=== PATIENT | male | born 1965 | race Caucasian/White ===

== ENCOUNTER 2016-11-26 15:54 | Emergency (ER) | payer SELFPAY ==
[~2016-11-26] VITALS: Ht 198.1 cm; Wt 140.0 kg
[~2016-11-26 15:54] MED LIST: CALCIUM CHLORIDE 10% SOLN 1 GRAM/10 ML SYR IV ONE; EPINEPHrine HCL (1:10,000) 1 MG/10 ML SYRINGE IV ONE; NALOXONE HCL 4 MG/10 ML MDV IV ONE; SODIUM BICARBONATE 8.4% INJ 50 MEQ/50 ML SYR IV ONE
[2016-11-26] MEDS ORDERED: EPINEPHrine HCL (1:10,000) 1 MG/10 ML SYRINGE ONE (16:14)
--- NOTE | 2016-11-26 16:42 | PD ---
HPI Chief Complaint: Cardiopulmonary Arrest Time Seen by Provider: 16:27 Travel History International Travel<30 days: No Contact w/Intl Traveler<30days: No History of Present Illness HPI The patient is 51 years old and arrives in cardiopulmonary arrest. He was found seizing by the side of the road by police. EMS was activated. On scene they observed agonal respirations with a pulse of 40. Reportedly within seconds of their arrival the patient became asystolic and cardiopulmonary resuscitation was initiated. The patient was intubated with a Combitube. Prior to ER arrival the patient underwent about 10 minutes of CPR. He received epinephrine and bicarbonate. Upon arrival here the endotracheal tube placement was confirmed and chest compressions were continued. He underwent 25 minutes of ACLS resuscitation before transthoracic ultrasound revealed cardiac akinesis and the patient was pronounced at 20:19. He received 2 A of sodium bicarbonate and 7 doses of epinephrine. The patient also received calcium and Narcan. A repeat blood glucose was 270; on scene blood glucose was about 130. Pupils remained fixed and dilated throughout the resuscitative course. [facility] Past Medical History Medical History: Unable to Obtain Social History Tobacco Use: No (unable to assess) Review of Systems ROS Limitations: Clinical Condition, Intubated, Unresponsive Physical Exam Narrative GENERAL: 60 yo M, GCS3T SKIN: Warm and dry. HEAD: Atraumatic. Normocephalic. EYES: Pupils fixed and dilated. ENT: No nasal bleeding or discharge. Mucous membranes pink and moist. NECK: Trachea midline. No JVD. CARDIOVASCULAR: Asystole/pulseless. RESPIRATORY: Intubated. Breath sounds bilaterally. GASTROINTESTINAL: Abdomen soft, non-tender, nondistended. Hepatic and splenic margins not palpable. MUSCULOSKELETAL: Extremities without clubbing, cyanosis, or edema. No obvious deformities. LLE IO in place. NEUROLOGICAL: GCS3T. PSYCHIATRIC: Unable to assess,. Data Data Last Documented VS Vital Signs Date Time Temp Pulse Resp B/P Pulse Ox O2 Delivery O2 Flow Rate FiO2 11/26/16 16:00 15.00 100 Orders Epinephrine (1:10,000) Inj (Epinephrine (11/26/16 16:14) MDM Medical Decision Making Medical Screen Exam Complete: Yes Emergency Medical Condition: Yes Differential Diagnosis cardiopulmonary arrest, respiratory arrest, hypoxia, anoxia, stroke, seizure Narrative Course Please refer to HPI. Pt pronounced at 2019pm. PMD notified by broker in charge. PMD will sign certificate. Procedures Procedure Narrative After the risks and benefits were discussed the following procedure was performed: CENTRAL VENOUS LINE: The site was prepped with Betadine and sterilely draped. It was infiltrated with 1% lidocaine plain. The deep vein was cannulated using normal Seldinger technique. A central line was placed in the R femoral vein site and secured with simple interrupted suture. The site was sterilely dressed. The patient tolerated the procedure well. After the risks and benefits were discussed the following procedure was performed: INTUBATION: The patient was put in optimal position for the procedure. The patient was intubated with a 8-0 cuffed endotracheal tube. Tube placement was confirmed by visualization of the tube and balloon passing through the cords, capnometry and subsequent chest x-ray. Glidoscope was employed. Breath sounds were equal and well aerated bilaterally postintubation. No breath sounds over stomach. Patient tolerated procedure well. Diagnosis Primary Impression: Additional Instructions: Not applicable Med/Other Pt SpecificInfo: Other Disposition: 20 Condition: Stable Cecil Bautista MD Nov 26, 2016 16:42
== END 2016-11-26 20:17 | disposition expired ==
LOC: NEPE 15:54 → NEPI 20:17
DX: I46.9 Cardiac arrest, cause unspecified (principal)
CPT/HCPCS: 31500; 36556; 92950; 99285; J0171; J2310